=== PATIENT | male | born 1965 | race Caucasian/White ===

== ENCOUNTER 2017-11-27 06:08 | Day surgery (SDC) | payer BC ==
[2017-11-26 15:00] LABS: BASOPHILS % (AUTO) 0.7 % (0.0-5.0); EOSINOPHILS % (AUTO) 3.2 % (0.0-8.0); HEMATOCRIT 43.6 % (42-54); LYMPHOCYTES % (AUTO) 19.2 % (21.0-51.0); MEAN CORPUSCULAR HGB CONC 35.4 g/dL (32.0-36.0); MEAN CORPUSCULAR VOLUME 87.4 fL (79-99); MONOCYTES % (AUTO) 7.9 % (3.0-13.0); PLATELET COUNT (AUTO) 162 K/uL (130-400); RED BLOOD CELL COUNT(AUTO) 4.99 MIL/uL (4.50-6.20); RED CELL DISTRIBUTION WIDTH 12.9 % (11.0-15.5); WHITE BLOOD COUNT (AUTO) 9.6 K/uL (4.8-10.8)
[2017-11-26 15:03] VITALS: BP 146/82
[2017-11-26 15:11] LABS: CREATININE 1.1 mg/dL (0.5-1.5); POTASSIUM 3.3 mmol/L (3.5-5.1)
[2017-11-27] VITALS (13 sets, daily range): BP systolic 106–128; BP diastolic 59–87
[~2017-11-27] VITALS: Ht 170.2 cm; Wt 101.4 kg
[~2017-11-27 06:08] MED LIST: CEFAZOLIN 3GM /D5W 100ML 100 ML IV SCH; FELO10TA31 PO; HYDR25TA PO; ROSU10TA PO
[2017-11-27] MEDS ORDERED: LACTATED RINGERS 1000ML 1,000 ML IV ONE (06:42)
[2017-11-27] MEDS: CEFAZOLIN SODIUM 1 GM VIAL ONE ×2 (06:55→09:00)
[2017-11-27] MEDS ORDERED: EPINEPHRINE 1 MG/ML 30ML VIAL IJ ONE (07:09)
[2017-11-27] MEDS ORDERED: POTASSIUM CHLORIDE 20MEQ/100ML 100 ML IV SCH (07:45)
[2017-11-27] MEDS ORDERED: ROPIVACAINE 0.5% 5MG/ML 30ML IJ ONE (07:49)
[2017-11-27] MEDS ORDERED: ROCURONIUM BROMIDE 10MG/1ML 5ML VL ONE ×2 (07:49→07:52)
[2017-11-27] MEDS ORDERED: PROPOFOL 10 MG/ML 20ML VIAL IV ONE (07:52)
[2017-11-27] MEDS ORDERED: MIDAZOLAM HCL 1 MG/ML 2ML VIAL ONE (07:52)
[2017-11-27] MEDS ORDERED: LIDOCAINE PF 2% 5ML ABBOJECT ONE (07:52)
[2017-11-27] MEDS ORDERED: MEPERIDINE-PF 25 MG/ML SYG ONE ×2 (09:00→13:20)
[2017-11-27] MEDS ORDERED: CEFAZOLIN SODIUM 1 GM VIAL ONE ×2 (11:52→13:07)
[2017-11-27] MEDS ORDERED: NAPR-1023 PO (12:47)
[2017-11-27] MEDS ORDERED: CEPH500B PO (12:47)
[2017-11-27] MEDS ORDERED: KETOROLAC TROMETHAMINE 30MG/ML ONE (12:47)
[2017-11-27] MEDS ORDERED: HYDR-309 PO (12:47)
[2017-11-27] MEDS ORDERED: CALDOLOR 800MG+NS 250ML 0 ML IV ONE (12:48)
[2017-11-27] MEDS ORDERED: ONDANSETRON HCL 4 MG/2 ML VIAL ONE (12:51)
[2017-11-27] MEDS ORDERED: DEXAMETHASONE SOD PHOSPHATE 10MG/ML 1ML VIAL ONE (12:51)
== END 2017-11-27 15:00 | disposition home or self-care (01) ==
LOC: DAH 06:08
PROVIDERS: ATTEND Orthopaedic Surgery
DX: M75.112 Incomplete rotator cuff tear or rupture of left shoulder, not specified as traumatic (principal); M75.42 Impingement syndrome of left shoulder; Z68.36 Body mass index [BMI] 36.0-36.9, adult; I10 Essential (primary) hypertension; Z79.899 Other long term (current) drug therapy; Z98.890 Other specified postprocedural states; Z82.49 Family history of ischemic heart disease and other diseases of the circulatory system
CPT/HCPCS: 23412; 29824; 29826; 36415 ×2; 80048; 84132; 85025; 96365; A4218 ×2; A4565; A4649 ×3; A4930 ×2; A6204; C1763; J0171; J0690 ×3; J1100; J1885; J2001; J2175 ×2; J2250; J2405; J2704; J2795; J3480; J3490 ×2; J7120 ×2; J1741

== ENCOUNTER → 2020-11-19 | Outpatient (CLI) | payer BC ==
[~2020-11-19] MED LIST changes: -CEFAZOLIN 3GM /D5W 100ML 100 ML IV SCH; +CEPH500B PO; -FELO10TA31 PO; +FELO10TA46 PO; +HYDR-4457 PO; +NAPR-1023 PO; -ROSU10TA PO; +ROSU10TA22 PO
== END | disposition home or self-care (01) ==
LOC: RAH 08:18
PROVIDERS: ATTEND Internal Medicine Cardiovascular Disease
DX: R94.31 Abnormal electrocardiogram [ECG] [EKG] (principal)
CPT/HCPCS: 78452; 93017; 96374; A9500 ×2

== ENCOUNTER → 2022-09-18 | Outpatient (CLI) | payer BC | END | disposition home or self-care (01) | LOC: SHCH 07:46 | PROVIDERS: ATTEND Internal Medicine Cardiovascular Disease | DX: I87.2 Venous insufficiency (chronic) (peripheral) (principal) | CPT/HCPCS: 93970 ==

== ENCOUNTER → 2023-05-18 | Outpatient (CLI) | payer BC | END | disposition home or self-care (01) | LOC: LAB 09:30 | PROVIDERS: ATTEND Internal Medicine Cardiovascular Disease | DX: I10 Essential (primary) hypertension (principal) | CPT/HCPCS: 36415; 80048 ==